=== PATIENT | female | born 1995 ===

== ENCOUNTER 2018-02-15 16:38 | Emergency (ER) | payer OTHER ==
[2018-02-15 16:53] VITALS: BMI 26.4
[2018-02-15] MEDS ORDERED: Sodium Chloride 0.9% 1,000 ML IV STA ×2 (17:09→17:47)
[2018-02-15] MEDS ORDERED: Sodium Chloride 0.9% 1,000 ML ONE ×2 (17:26→18:13)
[2018-02-15] MEDS ORDERED: Morphine 4 MG/ML VIAL ONE (17:26)
[2018-02-15 17:32] LABS: BASO % 0.1 % (0.0-2.0); EOS # 0.2 K/uL (0.0-0.7); HEMOGLOBIN 15.5 g/dL (11.0-16.0); LYMPH # 0.5 K/uL (1.0-4.3); LYMPH % 5.2 % (20.0-40.0); MEAN CELL VOLUME 90.1 fL (81.0-99.0); MEAN CORPUSCULAR HEMOGLOBIN 31.4 pg (27.0-31.0); MEAN CORPUSCULAR HGB CONC 34.8 g/dL (33.0-37.0); MEAN PLATELET VOLUME 9.7 fL (7.2-11.7); MONO # 0.3 K/uL (0.0-0.8); NEUT % 89.7 % (50.0-75.0); PLATELET COUNT 219 K/uL (130-400); RBC 4.95 Mil/uL (3.80-5.20); RED CELL DISTRIBUTION WIDTH 12.9 % (11.5-14.5)
[2018-02-15 17:35] LABS: HCG,QUALITATIVE URINE NEGATIVE (NEGATIVE)
[2018-02-15 17:42] LABS: SQUAMOUS EPITHIAL 14 /hpf (0-5); URINE BACTERIA FEW (<OCC); URINE BILIRUBIN NEGATIVE (NEGATIVE); URINE BLOOD NEGATIVE (NEGATIVE); URINE CLARITY Hazy (Clear); URINE COLOR Yellow (YELLOW); URINE GLUCOSE (UA) NORMAL (Normal); URINE LEUKOCYTE ESTERASE 3+ Leu/uL (Negative); URINE PROTEIN 1+ mg/dL (NEGATIVE); URINE UROBILINOGEN NORMAL mg/dL (0.2-1.0)
[2018-02-15 17:43] LABS: ALB/GLOB RATIO 1.3 (1.0-2.1); ALBUMIN 4.2 g/dL (3.5-5.0); ALT/SGPT 26 U/L (9-52); AST/SGOT 18 U/L (14-36); BLOOD UREA NITROGEN 8 mg/dL (7-17); CALCIUM 8.7 mg/dl (8.6-10.4); GFR AFRICAN-AMERICAN > 60; GFR NON-AFRICAN AMERICAN > 60; LIPASE 59 U/L (23-300)
[2018-02-15 17:46] VITALS: TEMP 97.8
--- NOTE | 2018-02-15 17:53 | C.PDOC ---
History Of Present Illness 22 year old female presents to the ER with a complaint of sharp epigastric pain and vomiting that began this morning. Patient reports she was previously diagnosed with gastritis; LMP was in November, currently on depo shot. Denies diarrhea or fever. Chief Complaint (Nursing): Abdominal Pain History Per: Patient History/Exam Limitations: no limitations Onset/Duration Of Symptoms: Hrs Current Symptoms Are (Timing): Still Present Location Of Pain/Discomfort: Epigastric Quality Of Discomfort: Sharp Associated Symptoms: Vomiting. denies: Fever, Diarrhea Exacerbating Factors: None Alleviating Factors: None Recent travel outside of the [place]: No Abnormal Vaginal Bleeding: No Past Medical History Reviewed: Historical Data, Nursing Documentation, Vital Signs Vital Signs: Last Vital Signs Temp 97.8 F 02/15/18 17:10 Pulse 86 02/15/18 19:15 Resp 18 02/15/18 19:15 BP 111/70 02/15/18 19:15 Pulse Ox 97 02/15/18 19:58 - Medical History PMH: Asthma, Gastritis Surgical History: Family History: States: Unknown Family Hx - Social History Hx Tobacco Use: No Hx Alcohol Use: No Hx Substance Use: No - Immunization History Hx Tetanus Toxoid Vaccination: No Hx Influenza Vaccination: No Hx Pneumococcal Vaccination: No Review Of Systems Constitutional: Negative for: Fever Cardiovascular: Negative for: Chest Pain, Palpitations Respiratory: Negative for: Cough Gastrointestinal: Positive for: Vomiting, Abdominal Pain. Negative for: Diarrhea Physical Exam - Physical Exam Appears: Non-toxic Skin: Normal Color, Warm, Dry Head: Atraumatic, Normacephalic Eye(s): bilateral: Normal Inspection Oral Mucosa: Moist Chest: Symmetrical, No Tenderness Cardiovascular: Rhythm Regular Respiratory: Normal Breath Sounds, No Rales, No Rhonchi, No Wheezing Gastrointestinal/Abdominal: Soft, Tenderness (Epigastric), No Guarding, No Rebound Neurological/Psych: Oriented x3, Normal Speech ED Course And Treatment - Laboratory Results Result Diagrams: 02/15/18 17:26 02/15/18 17:26 O2 Sat by Pulse Oximetry: 97 (Room air) Pulse Ox Interpretation: Normal - Other Rad Abdomen Xray X-Ray: Interpreted by Me Interpretation: No evidence of perforation Progress Note: Blood work, urinalysis, and abdominal x-ray ordered. Morphine, protonix, reglan, and IV fluids administered. On re-evaluation patient feels better, no longer c/o abdominal pain, tolerates po and is stable to be d/c home. Patient was instructed to f/u with PMD and GI. Disposition - Disposition Referrals: Kristie Antoine [Staff Provider] - Disposition: HOME/ ROUTINE Disposition Time: 19:55 Condition: STABLE Additional Instructions: Follow up with your PMD and Restaurant Area Manager within 1-2 days. Return to [facility] if feel worse. Prescriptions: Nitrofurantoin Macrocrystals [Macrobid] 1 cap PO BID #14 cap Famotidine [Pepcid] 20 mg PO BID #20 tab Instructions: Urinary Tract Infections in Adults, Acute Abdomen (Belly Pain), Adult (DC) Forms: [employer] ([place]) - Clinical Impression Clinical Impression: Epigastric pain, UTI (urinary tract infection) - PA / ACTUARY MANAGER / Resident Statement MD/DO has reviewed & agrees with the documentation as recorded. - Scribe Statement The provider has reviewed the documentation as recorded by the Scribemil Hernandez All medical record entries made by the Wyattibemil were at my direction and personally dictated by me. I have reviewed the chart and agree that the record accurately reflects my personal performance of the history, physical exam, medical decision making, and the department course for this patient. I have also personally directed, reviewed, and agree with the discharge instructions and disposition.
[2018-02-15 18:07] LABS: EOSINOPHIL 1 % (0-4); LYMPHOCYTE 6 % (20-40); MONOCYTE 1 % (0-10); NEUTROPHIL 92 % (50-75); TOTAL CELLS COUNTED 100
[2018-02-15 18:08] LABS: PLATELET ESTIMATE NORMAL (NORMAL)
[2018-02-15 19:15] VITALS: BP 111/70; PULSE 86; RESP 18
[2018-02-15 19:58] VITALS: O2SAT 97
--- NOTE | 2018-02-16 09:28 | RAD ---
HISTORY: Severe epigastric pain, r/o perforation COMPARISON: No prior. FINDINGS: BOWEL: There is non obstructive bowel gas pattern. No free air. BONES: Normal. OTHER FINDINGS: None. IMPRESSION: No free intraperitoneal air.
== END 2018-02-15 20:14 | disposition home or self-care (01) ==
LOC: C.ER 16:38
DX: N39.0 Urinary tract infection, site not specified (principal); R10.13 Epigastric pain
CPT/HCPCS: 74018; 80053; 81001; 83690; 84703; 85025; 87086; 96361; 96374; 96375; 99285; C9113; J2270; J2765; J7040